=== PATIENT | male | born 1985 | race Caucasian/White ===

== ENCOUNTER 2021-02-24 11:33 | Emergency (ER) | payer BC, SELFPAY ==
[2021-02-24] VITALS (12 sets, daily range): BP systolic 115–145; BP diastolic 68–97; PULSE 82–108; RESP 16; TEMP 36.6–36.8; O2SAT 96–98
--- NOTE | 2021-02-24 11:59 | W.ED.ABDPA2 ---
HPI - Abdominal Pain General: Chief Complaint: Abdominal Pain Stated Complaint: N/V Time Seen by Provider: 02/24/21 11:47 History of Present Illness: HPI narrative: Patient is a 35-year-old male comes to the ED with abdominal pain nausea and vomiting. Symptoms started approximately 2 days ago. Patient says he has a history of pancreatitis and ileus. He says he was hospitalized for an ileus approximately little over 2 weeks ago. Denies any past surgical history of abdomen. Abdominal pain is located in the periumbilical region and is constant and he rates it a 7 out of 10. He has not been able to keep any food or fluids down and has nausea and vomited multiple times daily since onset of symptoms. Reports some diarrhea. Denies any fever, chills, cough, chest pain, dysuria or hematuria. Associated Symptoms: Reports diarrhea, nausea and vomiting; Denies chills, constipation, dysuria, fever(s), hematochezia and hematuria Review of Systems Const: Reports: change in appetite (Decreased); Denies: fever(s), chills or fatigue Eyes: Denies: change in vision or eye discomfort ENMT: Denies: throat pain, odynophagia, nasal discharge or nasal congestion Card: Denies: chest pain, palpitations, edema, swelling of feet/ankles, dyspnea on exertion or orthopnea Resp: Denies: dyspnea, productive cough or non-productive cough GI: Reports: abdominal pain, nausea, vomiting and diarrhea; Denies: constipation or hematochezia : Denies: flank pain, difficulty urinating, dysuria or hematuria Musc: Denies: neck pain, back pain or extremity swelling Skin/Breast: Denies: rash or new lesions Neuro: Denies: headache(s), numbness in extremities or weakness in extremities Physical Exam Const: COMMON NORMALS: patient oriented x3 and alert GENERAL APPEARANCE: cooperative and in distress (Patient appears in pain and is very uncomfortable.) HENMT: COMMON NORMALS: normocephalic HEAD & SCALP: normocephalic MOUTH: moist mucous membranes abnormal Details: parched THROAT: posterior oropharynx normal and uvula midline Eye: COMMON NORMALS: Equal, round and reactive pupils present PUPIL: Yes Equal, round and reactive pupils present Neck/C-Spine: COMMON NORMALS: supple GENERAL: Yes normal visual inspection Resp: COMMON NORMALS: normal respiratory effort, No retractions, No use of accessory muscles and clear to auscultation bilaterally AUSCULTATION: clear to auscultation bilaterally Cardio: COMMON NORMALS: regular rate, regular rhythm, S1 normal heart sound present, S2 normal heart sound present, No gallops present (Cardio), No clicks present (Cardio), No murmurs present (Cardio) and Peripheral pulses 2+ throughout RATE: regular rate RHYTHM: regular rhythm HEART SOUNDS: S1 normal heart sound present and S2 normal heart sound present PERIPHERAL PULSES: Peripheral pulses 2+ throughout GI: COMMON NORMALS: Normal to inspection, nondistended, normoactive bowel sounds present, Soft to palpation and no masses PALPATION: Yes Soft to palpation and Yes Tenderness to palpation present (GI) Details: other (periumbilical tenderness) : COMMON NORMALS: Yes no CVA tenderness BLADDER/KIDNEY EXAM: Yes no CVA tenderness Back/Pelvis: COMMON NORMALS: no CVA tenderness Extremity: COMMON NORMALS: normal to inspection and no pedal edema Neuro: COMMON NORMALS: patient oriented x3 SENSORIUM/ORIENTATION: Yes alert GAIT: Yes Normal gait present Skin: GENERAL SKIN EXAM: dry skin Course Reevaluation(s): Reevaluation #1: After patient received IV pain meds, Reglan and 2 L of IV fluids he was able to keep p.o. fluids down and his symptoms improved. Vital Signs: Vital signs: Vital Signs Temperature 98 F 02/24/21 18:02 Pulse Rate 87 02/24/21 18:02 Respiratory Rate 16 02/24/21 18:02 Blood Pressure 131/86 02/24/21 18:02 Pulse Oximetry 97 02/24/21 18:02 MDM - Abdominal Pain MDM Narrative: Medical decision making narrative: Patient is a 35-year-old male comes to the ED with abdominal pain, nausea/vomiting and diarrhea. Vital stable patient has some periumbilical abdominal tenderness but the rest of exam is benign. CBC, CMP were unremarkable. Lipase normal. UA was unremarkable lactic was 3.9. CT of abdomen pelvis showed mild colitis. Patient received 2 L of IV fluids, pain meds and Reglan and his symptoms improved. He was able to keep p.o. fluids down. Patient also received a dose of IV Cipro and Flagyl while here in the ED. His lactic acid level went down to 2.6 after the 2 L of fluid. Patient diagnosed with colitis and discharged home with a prescription for Reglan, Flagyl, Cipro and hydrocodone for pain. Is told to follow-up with his PCP in 7 to 10 days reevaluation. Return to ED precautions given. Patient understood agree with plan. Lab Data: Attestation: I reviewed the patient's lab results. Labs: Lab Results 02/24/21 02/24/21 02/24/21 12:09 12:09 12:09 WBC 5.7 10^3/uL 10^3/ uL (4.0-10.0) RBC 4.83 10^6/uL 10^6 /uL (4.1-5.3) Hgb 16.0 g/dL g/dL (11.7-16.6) Hct 43.7 % % (42.0-52.0) MCV 90.5 fl fl (80-94) MCH 33.1 pg pg (28.0-34.0) MCHC 36.6 g/dL H g/dL (30.0-36.0) RDW 10.7 % L % (12.1-15.1) Plt Count 194 10^3/cmm 10^3 /cmm (130-400) MPV 10.0 fL fL (7.4-10.4) Neut % (Auto) 47.7 % % Lymph % (Auto) 43.7 % % Foster % (Auto) 5.5 % % Eos % (Auto) 1.9 % % Baso % (Auto) 0.7 % % Neut # (Auto) 2.69 10^3/uL 10^3 /uL (1.8-7.7) Lymph # (Auto) 2.5 10^3/uL 10^3/ uL (0.8-4.8) Foster # (Auto) 0.3 10^3/uL 10^3/ uL (0.2-0.9) Eos # (Auto) 0.1 10^3/uL 10^3/ uL (0.0-0.8) Baso # (Auto) 0.0 10^3/uL 10^3/ uL (0.0-0.1) Nucleated RBC % (a uto) 0 % % Nucleated RBCs # 0.0 /100WBC /100W BC Sodium 136 mmol/L mmol/L (136-145) Potassium 3.5 mmol/L mmol/L (3.5-5.1) Chloride 96 mmol/L L mmol/ L (98-107) Carbon Dioxide 23 mmol/L mmol/L (22-29) Anion Gap 20.5 H (5-19) BUN 6 mg/dL mg/dL (6-20) Creatinine 0.6 mg/dL L mg/dL (0.7-1.2) GFR Calculation 154.2 mL/min H mL /min (90-130) Glucose 92 mg/dL mg/dL (65-115) Calculated Osmolal ity 279 mOsm/kg L mOs m/kg (285-295) Lactic Acid 3.9 mmol/L H mmol /L (0.5-2.2) Lactic Acid (Sepsi s) Calcium 9.2 mg/dL mg/dL (8.5-10.5) Total Bilirubin 0.4 mg/dL mg/dL (0.15-1.2) AST 67 U/L H U/L (0-40) ALT 60 U/L H U/L (0-41) Alkaline Phosphata se 94 IU/L IU/L (40-130) Total Protein 7.2 g/dL g/dL (6.6-8.7) Albumin 4.7 g/dL g/dL (3.5-5.2) Globulin 2.5 g/dL g/dL (1.3-4.6) Lipase 31 U/L U/L (13-60) Urine Color Urine Appearance Urine pH Ur Specific Gravit y Urine Protein Urine Glucose (UA) Urine Ketones Urine Blood Urine Nitrate Urine Bilirubin Urine Urobilinogen Ur Leukocyte Sofya ase 02/24/21 02/24/21 12:14 15:50 WBC RBC Hgb Hct MCV MCH MCHC RDW Plt Count MPV Neut % (Auto) Lymph % (Auto) Foster % (Auto) Eos % (Auto) Baso % (Auto) Neut # (Auto) Lymph # (Auto) Foster # (Auto) Eos # (Auto) Baso # (Auto) Nucleated RBC % (a uto) Nucleated RBCs # Sodium Potassium Chloride Carbon Dioxide Anion Gap BUN Creatinine GFR Calculation Glucose Calculated Osmolal ity Lactic Acid Lactic Acid (Sepsi s) 2.6 mmol/L H mmol /L (0.5-2.2) Calcium Total Bilirubin AST ALT Alkaline Phosphata se Total Protein Albumin Globulin Lipase Urine Color Yellow (Yellow) Urine Appearance Clear (CLEAR) Urine pH 5 (5-7) Ur Specific Gravit y 1.015 (1.005-1.030) Urine Protein Neg (Negative) Urine Glucose (UA) Norm (Normal) Urine Ketones 3+ H (Negative) Urine Blood Neg (Negative) Urine Nitrate Negative (Negative) Urine Bilirubin Neg (Negative) Urine Urobilinogen Norm mg/dL mg/dL (Negative) Ur Leukocyte Sofya ase Negative (Negative) Imaging Data ^: CT Abd/Pel: Attestation: I personally reviewed and interpreted this imaging study as follows: Radiologist's impression: [facility] [address] [address] [address] Scan Report Signed Patient: Lior Lund Unit #: [id number] : 1985 Age/Sex: 35 / M ADM Date: 02/24/21 Loc: ER Room/Bed: Attending Dr: Ordering Provider/Ordering MD: Curt Salguero Date of Service: 02/24/21 Procedure(s): CT abdomen pelvis w con* [id number] Accession Number(s): [id number] Report Number: [id number] WS: [id number] CT ABDOMEN PELVIS TECHNIQUE: Contrast-enhanced CT of the abdomen and pelvis with coronal and sagittal reformatted images. CLINICAL INFORMATION: abdominal pain, n/v, diarrhea COMPARISON: None. DLP: 1306.[address] scans at [facility] use at least one of these dose optimization techniques: automated exposure control; mA and/or kV adjustment per patient size (includes targeted exams where dose is matched to clinical indication); or iterative reconstruction. FINDINGS: Mild hepatomegaly. Diffuse fatty infiltration of the liver. Normal gallbladder. Normal spleen. Normal GE junction. Lung bases are well aerated. Adrenal glands are normal. Normal renal parenchymal enhancement. No hydronephrosis. Normal caliber abdominal aorta. Normal sigmoid colon. No evidence of small or large bowel obstruction. Mild colonic thickening with submucosal enhancement involving the ascending colon extending into the transverse colon suspicious for infectious or inflammatory colitis. No evidence of small or large bowel obstruction. Normal lumbar spine. CT/CT abdomen pelvis w con* [id number] IMPRESSION: 1. Mild diffuse fatty infiltration of the liver. 2. Mild colonic wall thickening with submucosal enhancement involving the right colon and transverse colon suspicious for mild infectious or inflammatory colitis. 3. Normal air-filled appendix. No evidence of acute appendicitis. Dictated By: Marko Fofana MD Signed By: Marko Fofana MD Signed Date/Time: 02/24/21 1251 DD/ 1242 Discharge Plan Discharge Patient Disposition: Home Clinical Impression: Colitis Condition: Stable Prescriptions: New ciprofloxacin HCl 500 mg tablet 500 mg PO BID 7 Days Qty: 14 RF: 0 metronidazole 500 mg tablet 500 mg PO Q8H 7 Days Qty: 21 RF: 0 metoclopramide HCl 10 mg tablet 10 mg PO Q6H PRN (Reason: nausea and vomiting) Qty: 20 RF: 0 No Action sucralfate 1 gram tablet 1 g PO TID RF: 0 pantoprazole 40 mg tablet,delayed release (DR/EC) 40 mg PO DAILY RF: 0 hydroxyzine pamoate 25 mg capsule 25 mg PO BID RF: 0 Discharge Orders: Discharge ED (Routine); Ordered 02/24/21 Ordered By: Curt Salguero Discharge Diet: Advance as tolerated and Clear Liquid Discharge Activity: Increase activity as tolerated Patient Instructions: Clear Liquid Diet (ED), Gastroenteritis (ED), Infectious Colitis (ED), Opioid Safety Activity Restrictions/Additional Instructions: Follow up with PCP in 7 days for reevaluation. Take medications as prescribed. Have a clear liquid diet for the next 48 hours then advance as tolerated. if worsening symptoms, return to the ED for reevaluation. Coding Level of Care Code ED [employer] for Joanne Fwd Exam Comprehensive
--- NOTE | 2021-02-24 12:05 | CT_ITS ---
WS: [id number] CT ABDOMEN PELVIS TECHNIQUE: Contrast-enhanced CT of the abdomen and pelvis with coronal and sagittal reformatted image s. CLINICAL INFORMATION: abdominal pain, n/v, diarrhea COMPARISON: None. DLP: 1306.[address] scans at [facility] use at least one of these dose optimization techniques: automated e xposure control; mA and/or kV adjustment per patient size (includes targeted exams where dose is matc hed to clinical indication); or iterative reconstruction. FINDINGS: Mild hepatomegaly. Diffuse fatty infiltration of the liver. Normal gallbladder. Normal spleen. Normal GE junction. Lung bases are well aerated. Adrenal glands are normal. Normal renal parenchymal enhanc ement. No hydronephrosis. Normal caliber abdominal aorta. Normal sigmoid colon. No evidence of small or large bowel obstruction. Mild colonic thickening with s ubmucosal enhancement involving the ascending colon extending into the transverse colon suspicious fo r infectious or inflammatory colitis. No evidence of small or large bowel obstruction. Normal lumbar spine. CT/CT abdomen pelvis w con* [id number] IMPRESSION: 1. Mild diffuse fatty infiltration of the liver. 2. Mild colonic wall thickening with submucosal enhancement involving the righ t colon and transverse colon suspicious for mild infectious or inflammatory col itis. 3. Normal air-filled appendix. No evidence of acute appendicitis.
[2021-02-24] MEDS: morphine 4 mg/mL SDV 1 mL IVP ×2 (12:20→13:03)
[2021-02-24] MEDS: ondansetron 2 mg/ML SDV 2 mL 4 MG IVP (12:21)
[2021-02-24] MEDS: sodium chloride 0.9% 1,000 ML 999 ML IV ×2 (12:21→13:57)
[2021-02-24 12:34] LABS: Basophils % 0.7 %; Eosinophils # 0.1 10^3/uL (0.0-0.8); Eosinophils % 1.9 %; Hematocrit 43.7 % (42.0-52.0); Lymphocytes # 2.5 10^3/uL (0.8-4.8); Lymphocytes % 43.7 %; Mean Corpuscular HGB Conc 36.6 g/dL (30.0-36.0); Mean Corpuscular Hemoglobin 33.1 pg (28.0-34.0); Mean Corpuscular Volume 90.5 fl (80-94); Monocytes # 0.3 10^3/uL (0.2-0.9); Monocytes % 5.5 %; Neutrophils # 2.69 10^3/uL (1.8-7.7); Neutrophils % 47.7 %; Nucleated Red Blood Cells % 0 %; Platelet Count 194 10^3/cmm (130-400); Red Blood Count 4.83 10^6/uL (4.1-5.3); Red Cell Distribution Width 10.7 % (12.1-15.1); White Blood Count 5.7 10^3/uL (4.0-10.0)
[2021-02-24] MEDS: iohexol 300 mg/mL 100 mL Btl IV (12:35)
[2021-02-24 12:40] LABS: Add Urine Microscopic? NO; Urine Appearance Clear (CLEAR); Urine Color Yellow (Yellow)
[2021-02-24 12:41] LABS: Bilirubin Urine Neg (Negative); Blood Urine Neg (Negative); Charge for UA Resulting for Rev; Glucose Urine UA Norm (Normal); Ketones Urine 3+ (Negative); Leukocyte Esterase Urine Negative (Negative); Nitrate Urine Negative (Negative); Urobilinogen Urine Norm (Negative)
[2021-02-24 12:50] LABS: pH Urine 5 (5-7)
[2021-02-24 12:51] LABS: Protein Urine Neg (Negative); Specific Gravity, Urine 1.015 (1.005-1.030)
[2021-02-24 12:53] LABS: Lactic Sepsis W/Reflex 3.9 mmol/L (0.5-2.2)
[2021-02-24 12:54] LABS: Alanine Aminotransferase 60 U/L (0-41); Albumin Level 4.7 g/dL (3.5-5.2); Alkaline Phosphatase 94 IU/L (40-130); Anion Gap 20.5 (5-19); Aspartate Amino Transferase 67 U/L (0-40); Blood Urea Nitrogen 6 mg/dL (6-20); Calcium 9.2 mg/dL (8.5-10.5); Carbon Dioxide 23 mmol/L (22-29); Chloride 96 mmol/L (98-107); Globulin 2.5 g/dL (1.3-4.6); Glomerular Filtration Rate 154.2 mL/min (90-130); Glucose 92 mg/dL (65-115); Lipase 31 U/L (13-60); Osmolality Calculated 279 mOsm/kg (285-295); Potassium 3.5 mmol/L (3.5-5.1); Sodium 136 mmol/L (136-145); Total Bilirubin 0.4 mg/dL (0.15-1.2); Total Protein 7.2 g/dL (6.6-8.7)
[2021-02-24] MEDS: ciprofloxacin 400 MG/200 ML PREMIX 200 MG IV (13:58)
[2021-02-24] MEDS: metoclopramide 5 mg/mL SDV 2 mL 10 MG IVP (14:05)
[2021-02-24] MEDS: HYDROmorphone 1 mg/mL INJ 1 mL IVP (14:05)
[2021-02-24 14:17] LABS: Reflex Lactate Order REFLEX LACTIC ORDERD
--- NOTE | 2021-02-24 15:17 | PC.NURSE ---
Patients O2 was 96 on room air, he appeared to be sleeping and his O2 dropped to 89, he wakes and it increases to 93 on room air he is placed on O2at 1L/NC and O2 increases to 97. Noemy is notified.
[2021-02-24] MEDS: metroNIDAZOLE IV 500 MG/100 ML PREMIX 100 MG IV (15:23)
[2021-02-24 16:16] LABS: Lactic Acid level (Lactate) 2.6 mmol/L (0.5-2.2)
[2021-02-24] MEDS: HYDROmorphone 1 mg/mL INJ 1 mL 0.5 MG IVP (16:52)
== END 2021-02-24 18:18 | disposition home or self-care (01) ==
PROVIDERS: Emergency Provider Physician Assistant
DX: K52.9 Noninfective gastroenteritis and colitis, unspecified (principal)
CPT/HCPCS: 74177; 80053; 81003; 83605; 83690; 85025; 87040; 96365; 96367; 96375; 96376; 99284; J0744; J1170; J2270; J2405; J2765; J7030; Q9967; S0030